=== PATIENT | female | born 1940 | race Caucasian/White ===

== ENCOUNTER 2025-06-29 23:15 | Emergency (ER) | payer MEDICARE ==
[~2025-06-29] VITALS: Ht 165.1 cm; Wt 102.0 kg
[2025-06-29 23:27] VITALS: O2SAT 98
[2025-06-30 00:30] LABS: BASOPHILS % 1.4 % (0.0-2.0); EOSINOPHILS % 2.6 % (0.0-5.0); HEMATOCRIT. 31.3 % (36.0-48.0); HEMOGLOBIN. 9.9 g/dL (12.0-16.0); LYMPHOCYTES % 23.3 % (20.0-50.0); MEAN PLATELET VOLUME 8.8 fl (7.4-10.4); MONOCYTES % 6.2 % (2.0-8.0); NEUTROPHILS % 66.5 % (40.0-76.0); PLATELET 272 x1000/uL (130-400); RED BLOOD CELL COUNT 3.80 mill/uL (4.2-5.4); RED CELL DISTRIBUTION WIDTH 15.5 % (11.6-14.6)
[2025-06-30 00:33] LABS: CREATININE 0.9 mg/dL (0.6-1.0); UREA NITROGEN BLOOD 14.0 mg/dL (9-23)
[2025-06-30 00:44] LABS: TROPONIN I HIGH SENSITIVITY 40 ng/L (3.0-34)
[2025-06-30 02:21] LABS: TROPONIN I HIGH SENSITIVITY 39 ng/L (3.0-34)
[2025-06-30 02:57] VITALS: BP 169/70; PULSE 75; RESP 20; TEMP 37.1; O2SAT 98
== END 2025-06-30 03:13 | disposition home or self-care (01) ==
LOC: ER 23:15
DX: I10 Essential (primary) hypertension (principal); Z90.49 Acquired absence of other specified parts of digestive tract
CPT/HCPCS: 36415; 80048; 84484; 85025; 93005; 99284